=== PATIENT | female | born 1980 | race African-American/Black ===

== ENCOUNTER 2016-12-03 14:56 | Inpatient (IN) | payer OTHER ==
[~2016-12-03] VITALS: Ht 154.9 cm; Wt 86.2 kg
--- NOTE | ~2016-12-03 | EKG ---
PATIENT: EDDIE JOLLEY UNIT #: [id number] Ventricular Rate: 93 BPM Atrial Rate: 93 BPM P-R Interval: 146 ms QRS Duration: 82 ms Q-T Interval: 388 ms QTC Calculation(Bezet): 482 ms P [place]: 12 degrees Calculated R [place]: -3 degrees Calculated T [place]: 79 degrees Diagnosis Line: Normal sinus rhythm Diagnosis Line: Prolonged QT Diagnosis Line: Abnormal ECG Diagnosis Line: When compared with ECG of 03-DEC-2016 15:03, Diagnosis Line: No significant change was found Diagnosis Line: Confirmed by HALLIE FLORES MD ([id number]) on Diagnosis Line: 12/06/2016 8:53:30 AM INTERPRETING MD: LIDA
--- NOTE | ~2016-12-03 | EKG ---
PATIENT: EDDIE JOLLEY UNIT #: [id number] Ventricular Rate: 84 BPM Atrial Rate: 84 BPM P-R Interval: 146 ms QRS Duration: 86 ms Q-T Interval: 382 ms QTC Calculation(Bezet): 451 ms P [place]: 1 degrees Calculated R [place]: -15 degrees Calculated T [place]: 102 degrees Diagnosis Line: Normal sinus rhythm Diagnosis Line: Minimal voltage criteria for LVH, may be normal Diagnosis Line: variant Diagnosis Line: T wave abnormality, consider lateral ischemia Diagnosis Line: Abnormal ECG Diagnosis Line: No previous ECGs available Diagnosis Line: Confirmed by KHLOE STUBBS MD ([id number]) on Diagnosis Line: 12/04/2016 11:09:35 AM INTERPRETING MD: EVELYNE ARCHIBALD
--- NOTE | ~2016-12-03 | CO ---
Unit #: [id number] #: [id number] Patient: EDDIE JOLLEY [id number] [address] [address] [id number] I MR#: [id number] NAME: EDDIE JOLLEY ROOM: [facility] Age: 36 Sex: F Admission Date: 12/03/2016 : 1980 Attending Physician: Homa Schroeder M.D. Primary Care Physician: No Primary Care Physician Consultation Date: 12/04/2016 CONSULTATION REPORT REASON FOR CONSULTATION Chest pain, shortness of breath and palpitations. HISTORY OF PRESENT ILLNESS The patient is a 36-year-old female who does not have a information security manager. She denies ever having a cardiac history of myocardial infarction or cardiac catheterization. The patient does report that she does have a past medical history of hypertension, chronic kidney disease likely glomerulonephritis, that was diagnosed as a child. She has not had any followup as an adult for her chronic kidney disease. She reports that she did have a biopsy around the age of 6, when this was diagnosed. The patient does endorse that she does smoke half to one pack of cigarettes daily and does use marijuana. The patient presented to the emergency department with complaints of intermittent chest pain and discomfort as well as increased fatigue. She stated that the pain was dull and constant, in the middle of her chest, and would radiate to her left arm. She denied any fever, chills, night sweats, nausea or vomiting. In the emergency department the patient was found to be hypertensive with a blood pressure of 260/140 and a chest x-ray that was consistent with pulmonary edema. Cardiology has been consulted for chest pain, shortness of breath and hypertension. She was started on a Cardene drip. PAST MEDICAL HISTORY 1. Glomerulonephritis. 2. Hypertension. 3. Chronic kidney disease. 4. Likely obstructive sleep apnea. PAST SURGICAL HISTORY Right ankle surgery. SOCIAL HISTORY The patient has children. She smokes a half pack to one pack of cigarettes per day. She does endorse marijuana use. She denies a history of alcohol use. FAMILY HISTORY The patient endorses hypertension and coronary artery disease, but details are unknown. ALLERGIES No known drug allergies. Unit #: [id number] #: [id number] Patient: SHOLA,LACRETIA HOME MEDICATIONS None. REVIEW OF SYSTEMS A 10-point review of systems has been done and is otherwise negative except as per the history of present illness. PHYSICAL EXAMINATION GENERAL: The patient is awake and alert, in no acute distress. VITALS: Temperature 98.4, heart rate 99, respiratory rate 20, blood pressure 152/80 and she is oxygenating at 98%. HEENT: Head is atraumatic, normocephalic. Pupils equal, round and reactive. Extraocular movements are intact. No drainage from ears or nares. NECK: Supple. Trachea midline. No thyromegaly or lymphadenopathy is appreciated. Normal carotid upstrokes. CHEST: Lungs are clear to auscultation bilaterally. No wheezes, rales or rhonchi. HEART: S1 and S2. Regular rate and rhythm. No murmurs, rubs or gallops appreciated. ABDOMEN: Soft, nontender and nondistended. Bowel sounds are positive in all four quadrants. SKIN: Warm, dry and intact without any unusual rashes or lesions. EXTREMITIES: No clubbing, edema or cyanosis. NEUROLOGIC: The patient is alert and oriented times three. She is pleasant and conversant. No focal deficits. DIAGNOSTIC STUDIES IMAGING: Chest x-ray shows findings consistent with pulmonary edema. LABORATORY: Most recently, white blood cell count 10.2, hemoglobin 9.5, hematocrit 28.5, platelets 237, sodium 133, potassium 4.6, chloride 106, CO2 18, glucose 99, BUN 47, creatinine 7.9, iron 183, CK 163, magnesium 2.1, TIBC 400, transferrin 286, trans saturation 46. Urine culture is negative. ASSESSMENT 1. Hypertensive urgency. 2. [place]ai[place]-iw-mwhsjmo kidney disease. 3. Glomerulonephritis. 4. Acute on likely chronic anemia. 5. Hyponatremia. 6. Heavy menses. 7. Tobaccoism. 8. Noncompliant. 9. Marijuana use. PLAN At this time will attempt to wean the patient off the Cardene drip as tolerated. Will check a BMP, CBC, magnesium, troponin, EKG in the morning. Will obtain a two-dimensional echocardiogram. Will place the patient on hydralazine 25 mg p.o. q.6 h. and hold for systolic blood pressure less than 110. Lipid profile will be added to her labs as well as a urine tox screen. Unit #: [id number] #: [id number] Patient: MARIPOSA JOLLEYA Dictated by... Chelly Nieves A.P.R.N. for Alisa Dieter Parada AM/amos TD: 12/04/2016 12:20 JOB #: [id number] CONSULTATION REPORT Page 1 of 1 X Chelly Nieves APRN X CONSULTATION REPORT
--- NOTE | ~2016-12-03 | HP ---
Unit #: [id number] #: [id number] Patient: EDDIE JOLLEY [id number] [address] [place], [place] [address] [id number] I MR#: [id number] NAME: EDDIE JOLLEY ROOM: [address] Age: 36 Sex: F Admission Date: 12/03/2016 : 1980 Attending Physician: Homa Schroeder M.D. HISTORY AND PHYSICAL REASON FOR ADMISSION Hemoglobin 6.8, accelerated hypertension, creatinine 8.2. HISTORY OF PRESENT ILLNESS The patient is a 36-year-old female who states she has not taken any medications for the past several years, who really does not follow up with any primary care physicians, stated that off and on for the past several weeks she has had an increasing amount of chest pain and/or discomfort, as well as increased fatigue. She was subsequently evaluated in the emergency room and noted to have the above laboratory abnormalities and thus is being admitted for the same. 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 She off and on did not follow up through her younger childhood. In her late 20s, she was asked to go to [facility] who she never formally saw or followed up with. She has not really seen any primary care physicians for the past several years. Also noted was her BNP was 1019. Initial blood pressure in the emergency room is 260/140. PAST MEDICAL HISTORY Hypertension, currently on no medications. PAST SURGICAL HISTORY Right ankle surgery. HOME MEDICATIONS None. ALLERGIES No known drug allergies. FAMILY HISTORY Patient knows her mother had hypertension, as well as kidney-related and/or heart-related issues. She is not very clear on details. Siblings have no medical history and/or complications. She is not very well aware of her father's side of the family. SOCIAL HISTORY Positive tobacco use. Negative alcohol use. The patient denies illicit drug use. Unit #: [id number] #: [id number] Patient: EDDIE JOLLEY REVIEW OF SYSTEMS Please see History of Present Illness. Positive for chest pain, positive shortness of breath, positive fatigue, positive dyspnea on exertion. No fever or chills, no nausea or vomiting, no melena. Positive metromenorrhagia for the past several years. PHYSICAL EXAMINATION VITAL SIGNS: Temperature 98.3, pulse 92, respiratory rate 16, and blood pressure 260/140. GENERAL APPEARANCE: A 36-year-old female lying comfortably in no acute distress. HEAD: Atraumatic and normocephalic. EARS: Tympanic membranes do not reveal any erythema or injection. NECK: Supple. CARDIOVASCULAR: S1 and S2, tachycardic, with no murmur. RESPIRATORY: Clear. GASTROINTESTINAL/ABDOMEN: Nontender and nondistended. LOWER EXTREMITIES: No evidence of any lower extremity edema and no calf tenderness. NEUROLOGIC: Alert and oriented x3. No evidence of any focal nerve deficits. DIAGNOSTIC STUDIES LABORATORY ON ADMISSION: Hemoglobin of 6.8. GFR of 6.5, creatinine 8.2, and CO2 of 19. Initial cardiac enzyme set negative. BNP 1019. INR 0.9. INITIAL IMPRESSION 1. Acute kidney injury. 2. Anemia, questionable acute blood loss versus anemia of chronic disease secondary to renal failure. 3. Metromenorrhagia. 4. Chest pain. 5. Accelerated hypertension. 6. Noncompliance with medications. PLAN Admission. Nitroglycerin drip. ICU placement. Type and cross and transfuse two units. GI consultation. Protonix drip. Renal consultation. Start gentle IV fluids at 50 mL/hour. Cardiac consultation. A 2D echocardiogram secondary to elevated BNP. Routine laboratory studies in the a.m. Strict I/Os. The plans have been reviewed with the patient. She is Full Code. Prognosis is guarded at this point secondary to numerous coexisting medical conditions. Patient well aware of her prognosis, as well as current clinical situation. Dictated by Dieter Sparrow/chanda TD: 12/03/2016 20:12 JOB #: [id number] Unit #: [id number] #: [id number] Patient: EDDIE JOLLEY HISTORY AND PHYSICAL Page 1 of 1 X Homa Schroeder MD HISTORY AND PHYSICAL
--- NOTE | ~2016-12-03 | CT71 ---
[facility] A Service of [facility] RADIOLOGY TEXT RESULTS PATIENT: EDDIE JOLLEY [facility] [birth year] UNIT #: [id number] AGE: [address]: Homa Schroeder MD SEX: F ORDER DR: [id number] [facility] [address] [place], [place] [address] [id number] I MR#: [id number] Acc #: [id number] NAME: EDDIE JOLLEY : 1980 SEX: F STUDY DATE/TIME: 12/03/2016 16:07 UNIT: [facility]IC2 ROOM: [facility] STUDY DESCRIPTION: CT Head Wo Contrast Attending Physician: Homa Schroeder M.D. Ordering Physician: Ricco Noe M.D. Primary Care Physician: Primary Care Physician No MEDICAL IMAGING REPORT This report is preliminary unless electronic signature is present EXAM CT head without contrast INDICATION Left arm numbness, lightheadedness and headache for the past week. PROCEDURE Unenhanced CT of the head. This CT exam was performed with one or more of the following radiation dose reduction techniques: automatic exposure control, adjustment of mA and/or kV according to patient size, and iterative reconstruction. COMPARISON None FINDINGS No acute hemorrhage, abnormal mass effect, extraaxial collection or hydrocephalus. No definitive evidence for an acute or early subacute large territory infarct. No calvarial fracture. Paranasal sinuses and mastoid air cells are clear. IMPRESSION No acute intracranial findings. Dictated by... Eh Vargas M.D. THIS IS AN ELECTRONICALLY VERIFIED REPORT Eh Vargas M.D. at 12/05/2016 7:14 AM FUNMILAYO/berkley TD: 12/04/2016 07:58 [facility] A Service [facility] RADIOLOGY TEXT RESULTS PATIENT: EDDIE JOLLEY [facility] : [birth year] UNIT #: [id number] AGE: [address]: Homa Schroeder MD SEX: F ORDER DR: JOB #: [id number] MEDICAL IMAGING REPORT Page 1 of 1 COPY
--- NOTE | ~2016-12-03 | CR72 ---
[facility] A Service of [facility] RADIOLOGY TEXT RESULTS PATIENT: EDDIE JOLLEY LOCATION: [address] : [birth year] UNIT #: [id number] AGE: [address]: Homa Schroeder MD SEX: F ORDER DR: [id number] [facility] [address] [facility]. [place], [place] [address] [id number] I MR#: [id number] Acc #: [id number] NAME: EDDIE JOLLEY : 1980 SEX: F STUDY DATE/TIME: 12/04/2016 1:14 UNIT: [facility] ROOM: [facility] STUDY DESCRIPTION: CR Chest Single View Portable Attending Physician: Homa Schroeder M.D. Ordering Physician: Homa Schroeder M.D. Primary Care Physician: Primary Care Physician No MEDICAL IMAGING REPORT This report is preliminary unless electronic signature is present EXAM Portable chest HISTORY PIC catheter placement. FINDINGS This portable view of the chest compared with one from yesterday. The PIC catheter has been added on the right side. The tip is in the lower superior vena cava. The heart size is normal and the lungs are clear. Dictated by... Tal Alvarenga M.D. THIS IS AN ELECTRONICALLY VERIFIED REPORT Tal Alvarenga M.D. at 12/04/2016 1:42 PM ERIN/elbert TD: 12/04/2016 13:27 JOB #: [id number] MEDICAL IMAGING REPORT Page 1 of 1 COPY
--- NOTE | ~2016-12-03 | CR72 ---
[facility] A Service of [facility] RADIOLOGY TEXT RESULTS PATIENT: EDDIE JOLLEY LOCATION: [address] : [birth year] UNIT #: [id number] AGE: [address]: Homa Schroeder MD SEX: F ORDER DR: [id number] [facility] [address] [facility] [place], [place] [address] [id number] I MR#: [id number] Acc #: [id number] NAME: EDDIE JOLLEY : 1980 SEX: F STUDY DATE/TIME: 12/03/2016 15:35 UNIT: [facility] ROOM: [facility] STUDY DESCRIPTION: CR Chest Single View Portable Attending Physician: Homa Schroeder M.D. Ordering Physician: Ricco Noe M.D. Primary Care Physician: Primary Care Physician No MEDICAL IMAGING REPORT This report is preliminary unless electronic signature is present EXAM Portable chest, 12/03/2016 HISTORY Chest pain, shortness of breath on exertion, cough, chest congestion and headache for 1 week. Benign essential hypertension, bronchitis. Smoking history for 20 years. FINDINGS A single AP portable view of the chest shows both lungs to be clear. The heart is normal in size. The mediastinal contour is normal. No significant bone abnormalities are seen. IMPRESSION Normal portable chest. Dictated by... Alberto Greer M.D. THIS IS AN ELECTRONICALLY VERIFIED REPORT Alberto Greer M.D. at 12/04/2016 2:11 PM JEFFREY/berkley TD: 12/04/2016 09:04 JOB #: [id number] MEDICAL IMAGING REPORT Page 1 of 1 COPY
--- NOTE | ~2016-12-03 | CO ---
Unit #: [id number] #: [id number] Patient: EDDIE JOLLEY [id number] [address] [place], [place] [address] [id number] I MR#: [id number] NAME: EDDIE JOLLEY ROOM: [facility] Age: 36 Sex: F Admission Date: 12/03/2016 : 1980 Attending Physician: Homa Schroeder M.D. Primary Care Physician: No Primary Care Physician Consultation Date: 12/04/2016 CONSULTATION REPORT REASON FOR CONSULT ICU management. REASON FOR ADMISSION High blood pressure and low hemoglobin. HISTORY OF PRESENT ILLNESS This is a very pleasant 36-year-old female with past medical history significant for hypertension, chronic kidney disease and likely glomerulonephritis who presented to the emergency room with chest pain and profound fatigue. The patient stated that her chest pain was dull and constant in the middle of her chest but radiated to her left arm. She denied any fever, chills or night sweats. No nausea, vomiting or diagnosed. She had no fever or chills. No coughing. Unfortunately, the patient had a longstanding history of chronic kidney disease and glomerulonephritis. She had a kidney biopsy in the past, but that was more than 20 years ago. She lost followup, and she has not had any labs recently. In the ER the patient was found to be severely hypertensive with blood pressure of 260/140. Her chest x-ray was consistent with pulmonary edema. PAST MEDICAL HISTORY 1. Hypertension. 2. Glomerulonephritis. 3. Chronic kidney disease. 4. Possible obstructive sleep apnea. PAST SURGICAL HISTORY Right ankle surgery. HOME MEDICATIONS None. ALLERGIES No known drug allergies. FAMILY HISTORY Hypertension and heart problems. SOCIAL HISTORY Unit #: [id number] #: [id number] Patient: EDDIE JOLLEY The patient continues to smoke less than a pack per day. No history of alcohol or drug abuse. REVIEW OF SYSTEMS Twelve-point review of systems was obtained and was negative except for what was mentioned in the HPI. PHYSICAL EXAMINATION GENERAL: The patient, at this point, does not appear in acute distress. VITAL SIGNS: Blood pressure 155/79, respiratory rate 16, O2 saturation 96% on room air. HEENT: Atraumatic, normocephalic. PERRLA, EOMI. NECK: Supple. No JVD. No lymphadenopathy. CHEST: Clear to auscultation bilaterally. HEART: S1, S2. No murmur, gallops or rubs. ABDOMEN: Soft, nontender. Bowel sounds positive. No hepatosplenomegaly. EXTREMITIES: She has +1 edema, and there is some orbital edema, also. SKIN: No rashes. HEAD LIBRARIAN: Awake, alert, oriented x3. No focal motor/sensory deficits. LABS AND OTHER TESTS LABS: Creatinine is 8.2, sodium 134. White blood count 8.1, hemoglobin 6.8. IMAGING TESTS: Chest x-ray is consistent with pulmonary edema. ASSESSMENT 1. Hypertensive emergency. 2. Acute on chronic kidney disease versus endstage renal disease. 3. Acute on likely chronic anemia. 4. Hyponatremia. 5. Likely glomerulonephritis. 6. Heavy menstrual period. PLAN 1. Patient will be monitored in ICU closely. However, she can be transferred as soon as she is off Cardene drip. 2. Patient will be started on blood pressure p.o. medicines and adjusted over the next 2-3 days. 3. Her current hemoglobin level is likely related to heavy periods and chronic kidney disease. I doubt any GI etiology. It is okay from my standpoint to discontinue her Protonix drip. 4. Patient will likely need hemodialysis and tunnelled cath placement. Awaiting nephrology evaluation. 5. Patient was counselled extensively regarding compliance with medication and followup with doctors. 6. DVT prophylaxis. NOTE: I would like to thank Dr. Schroeder for allowing me to be part of this patient's care. Dictated by... Israel Willingham M.D. EA/mae Unit #: [id number] #: [id number] Patient: EDDIE JOLLEY TD: 12/04/2016 11:21 JOB #: [id number] CONSULTATION REPORT Page 1 of 1 X ISRAEL GALLEGO MD CONSULTATION REPORT
--- NOTE | ~2016-12-03 | CO ---
Unit #: [id number] #: [id number] Patient: EDDIE IBRAHIM [id number] [facility]. [place], [place] [address] [id number] I MR#: [id number] NAME: EDDIE IBRAHIM ROOM: 314 Age: 36 Sex: F Admission Date: 12/03/2016 : 1980 Attending Physician: Debra Holley M.D. Primary Care Physician: Primary Care Physician No Consultation Date: 12/04/2016 CONSULTATION REPORT REASON FOR CONSULTATION Hemodialysis access. HISTORY OF PRESENT ILLNESS This is a 36-year-old female admitted to [facility] with chest pain. On admission, she was having a hypertensive crisis with systolic blood pressure in the 260s. Reviewing her chart as well as medical history, she has had a little medical care for followup of her chronic kidney disease as well as uncontrolled hypertension. Her current lab values have a glomerular filtration rate measuring 6.8 and she is now in need of hemodialysis initiation. We have been asked to see her for line placement and AV fistula creation. Ms. Ibrahim is right handed. She has no implanted pacemaker or defibrillator. PAST SURGICAL HISTORY Significant for a surgery to her right ankle. PAST MEDICAL HISTORY 1. Chronic kidney disease. 2. Hypertension. 3. Sleep apnea. 4. Glomerulonephritis. HOME MEDICATIONS None. ALLERGIES No known drug allergies. SOCIAL HISTORY The patient smoked around one pack of cigarettes daily. No history of alcohol or drug use. FAMILY HISTORY Hypertension, but no mention of hemodialysis. REVIEW OF SYSTEMS Other than chest pain on admission, a 12-point review of systems was negative except mentioned in the HPI. PHYSICAL EXAMINATION VITAL SIGNS: Temperature 98.5, blood pressure 157/84, heart rate 94, and respirations 19. Unit #: [id number] #: [id number] Patient: EDDIE IBRAHIM GENERAL: Drowsy female. She answers questions appropriately; however, she otherwise has limited participation in the examination. NECK: No carotid bruits heard on auscultation. HEENT: Normocephalic. CARDIAC: Regular rate and rhythm. No murmurs noted. LUNGS: Clear to auscultation, but diminished at bilateral bases. Nonlabored. ABDOMEN: Positive bowel sounds. Abdomen is soft, nontender. No distention. MUSCULOSKELETAL: Moves all extremities with full range of motion. VASCULAR: Palpable radial pulses bilaterally. Palpable femoral pulses bilaterally. Palpable dorsalis pedis and posterior tibialis pulses bilaterally. INTEGUMENTARY: No obvious sores, lesions, or wounds to her skin. She has a PICC line in her right upper extremity. NEUROLOGIC: Cranial nerves II through XII grossly intact with normal strength and sensation bilaterally. PSYCHIATRIC: The patient is alert and oriented to person, place, and time. DIAGNOSTIC STUDIES IMAGING STUDIES: Upper extremity vein mapping pending. LABORATORY RESULTS: Sodium 133, potassium 4.6, chloride 106, CO2 of 18, BUN 47, creatinine 7.9, and EGFR 6.8. Hemoglobin 9.5, hematocrit 28.5, WBC 10.2, and platelets 237. Coagulation, INR 0.9. ASSESSMENT 1. Chronic kidney disease with need for hemodialysis access and initiation. 2. Hypertension. PLAN Vein mapping has been ordered and will be reviewed once obtained. The patient is right handed and has a right arm PICC line, so ideally the plan will be for a left arm arteriovenous fistula creation if vein mapping shows suitable vasculature. She is in need for initiation of hemodialysis, so a tunneled dialysis catheter will be placed tomorrow, which can be used thereafter for hemodialysis. With respect to her hypertension, she is currently in the ICU being managed on a Cardene drip. Thank you for allowing us to participate in the care of Ms. Ibrahim. Dictated by... Mani Stevens APRN for Dieter Jeffries/emilee TD: 12/05/2016 14:27 JOB #: [id number] Unit #: [id number] #: [id number] Patient: EDDIE IBRAHIM CONSULTATION REPORT Page 1 of 1 X X CONSULTATION REPORT
--- NOTE | ~2016-12-03 | OR ---
Unit #: [id number] #: [id number] Patient: EDDIE JOLLEY [id number] [facility]. [place], [place] [address] [id number] I MR#: [id number] NAME: EDDIE JOLLEY ROOM: [facility] Date of Procedure: 12/06/2016 Admission Date: 12/03/2016 Surgeon: Trey Hooker M.D. : 1980 Attending Physician: Delon Garcia M.D. Primary Care Physician: Primary Care Physician No OPERATIVE REPORT PREOPERATIVE DIAGNOSIS Chronic renal failure. POSTOPERATIVE DIAGNOSIS Chronic renal failure. PROCEDURE PERFORMED Insertion of right IJ tunneled catheter with ultrasound guidance and C-arm fluoroscopy. ANESTHESIA MAC with local. INDICATIONS FOR PROCEDURE This is a patient with requiring hemodialysis initiation, who was recommended a tunneled catheter now and AV fistula later. She was explained the risks and benefits and agrees to proceed. DESCRIPTION OF PROCEDURE The patient was brought to the operating room and IV sedation was administered and monitored by Anesthesia. The neck and the chest were cleaned, prepped, and draped in the usual sterile fashion with ChloraPrep. A 1% lidocaine was infiltrated and a small skin incision was made in the right side of the neck. Using ultrasound guidance, the right internal jugular vein was entered with a needle and a guidewire was passed. It was confirmed to be in the right side of the heart with C-arm fluoroscopy. After serial dilatation, a dilator and sheath were placed and a 23 cm NextStep catheter was passed through the sheath and the sheath was peeled away. A subcutaneous tunnel was made and the catheter was pulled through the tunnel leaving the cuff under the skin. The catheter was trimmed appropriately, attached to the Y connectors, aspirated revealing free flow of venous blood, and flushed. The tip of the catheter was confirmed with the right atrium with no kinks. The catheter was affixed to the skin with 3-0 nylon, and skin incision in the neck was closed with 4-0 Monocryl and Steri-Strips. Dressings were placed. The patient was transported to the recovery room in stable condition. Dictated by... Trey Hooker M.D. Unit #: [id number] #: [id number] Patient: EDDIE JOLLEY SA/modl TD: 12/11/2016 03:06 JOB #: [id number] OPERATIVE REPORT Page 1 of 1 X Trey Hooker MD PROCEDURE OPERATIVE NOTE
--- NOTE | ~2016-12-03 | US77 ---
[facility] A Service of [facility] & [facility] RADIOLOGY TEXT RESULTS PATIENT: EDDIE JOLLEY LOCATION: [address] : [birth year] UNIT #: [id number] AGE: [address]: Homa Schroeder MD SEX: F ORDER DR: [id number] [facility] [address] [facility] [place] [facility]. [place], [place] [address] [id number] I MR#: [id number] #: [id number] NAME: EDDIE JOLLEY : 1980 SEX: F STUDY DATE/TIME: 12/04/2016 19:15 UNIT: [id number] ROOM: [facility] STUDY DESCRIPTION: US Kidney Bilateral Complete Attending Physician: Homa Schroeder M.D. Referring Physician: Nikhil Brooke M.D. Ordering Physician: Ed Ramiro Duarte M.D. Primary Care Physician: No Primary Care Physician MEDICAL IMAGING REPORT This report is preliminary unless electronic signature is present EXAM Renal ultrasound, 12/04/2016. HISTORY Hypertension, acute renal insufficiency, abnormal renal function tests. Elevated BUN of 47, elevated creatinine of 7.9. Abnormally low GFR of 6.8 today. FINDINGS The right kidney measures 9.6 cm while the left kidney measures 10.1 cm in longitudinal dimensions. There is no evidence of hydronephrosis or nephrolithiasis. No cystic or solid mass lesions were seen on either kidney. There is increased renal cortical echogenicity characteristic of medical renal disease. The bladder was empty for the exam and therefore poorly visualized. Trace ascites is noted. IMPRESSION 1. Bilateral increase in renal cortical echogenicity characteristic of medical renal disease. No evidence of hydronephrosis. 2. The bladder was empty for the exam and therefore poorly visualized. 3. Trace ascites. Dictated by... Alberto Greer M.D. THIS IS AN ELECTRONICALLY VERIFIED REPORT Alberto Greer M.D. at 12/05/2016 2:20 PM JEFFREY/marcial TD: 12/05/2016 01:12 JOB #: [id number] [facility] A Service of [facility] & [facility] RADIOLOGY TEXT RESULTS PATIENT: EDDIE JOLLEY LOCATION: [facility] : [birth year] UNIT #: [id number] AGE: [address]: Homa Schroeder MD SEX: F ORDER DR: MEDICAL IMAGING REPORT Page 1 of 1 COPY
--- NOTE | ~2016-12-03 | DS ---
Unit #: [id number] #: [id number] Patient: EDDIE JOLLEY [id number] [facility] [address] [place], [place] [address] [id number] I MR#: [id number] NAME: EDDIE JOLELY ROOM: 314 Age: 36 Sex: F Admission Date: 12/03/2016 : 1980 Discharge Date: 12/10/2016 Attending Physician: Delon Garcia M.D. Primary Care Physician: No Primary Care Physician DISCHARGE SUMMARY DIAGNOSIS ON ADMISSION Acute renal failure. DIAGNOSES ON DISCHARGE 1. Endstage renal disease, newly diagnosed. 2. Malignant hypertension, resolved. 3. Severe left ventricular hypertrophy. 4. Ejection fraction of 60%. 5. Tobacco abuse. 6. Marijuana abuse. 7. Chronic anemia. 8. Probable obstructive sleep apnea syndrome. 9. Severe iron deficiency anemia. CONSULTATIONS 1. Dr. Rousseau in intensive care consultation. 2. Dr. Acuna in renal consultation. 3. Dr. Avilez in pulmonary" consultation. 4. Dr. Parada in cardiology consultation. 5. Vascular surgery for hemodialysis access. HOSPITAL COURSE This 36-year-old female was admitted to [facility] with creatinine of 8.2. The patient was seen by renal in consultation and underwent hemodialysis. The patient apparently had a renal biopsy as a child and glomerulonephritis. She underwent hemodialysis. Nephrology has labeled her as newly diagnosed endstage renal disease, and she will need hemodialysis on an outpatient basis, which is being arranged. Anemia. The patient's hemoglobin was 6.8 on admission. She received 2 units of blood transfusion. Hemoglobin is 9.5. She was seen by Dr. Abbasi in consultation. Malignant hypertension. The patient was seen by cardiology in consultation. She had a two-D echocardiogram done, which revealed ejection fraction of 60%, and she had severe concentric left ventricular hypertrophy present. PHYSICAL EXAMINATION GENERAL: Today, the patient is comfortable, is not in any acute distress. VITAL SIGNS: Vital signs reveal temperature of 98.1, pulse 72 per minute, respiratory rate 18 per minute and blood pressure (1) . Patient is currently having hemodialysis. HEENT: Examination revealed no conjunctival congestion. Sclera is Unit #: [id number] #: [id number] Patient: SHOLALACRETIA nonicteric. NECK: Neck is supple. Trachea is central. RESPIRATORY: Examination revealed breath sounds equal bilaterally. There are no wheezes or crackles. HEART: Regular rate and rhythm. S1, S2. ABDOMEN: Abdomen is soft, nontender. Bowel sounds are present in all 4 quadrants. NEUROLOGIC: The patient is alert to person, place and time. Power is 5/5 bilaterally. Sensations are grossly intact. SKIN: Skin is warm and dry. RECOMMENDATIONS ON DISCHARGE 1. Condition is stable. 2. Activity is as tolerated. DISCHARGE MEDICATIONS 1. Tylenol 650 mg p.o. q.4 hours p.r.n. 2. Norvasc 10 mg p.o. daily. 3. Lopressor 50 mg p.o. daily. 4. Senokot S 2 tablets p.o. b.i.d. 5. MiraLAX 17 grams p.o. daily. 6. Hydralazine 100 mg p.o. daily. 7. Lisinopril 20 mg p.o. daily. FOLLOWUP 1. The patient is advised to follow up with primary care physician in 1 week and have a CBC and BMP done. 2. The patient is advised to follow up with Dr. Echeverria, Dr. Parada and Dr. Abbasi as recommended. 3. The patient is also advised to follow up with Dr. Rousseau as recommended for sleep apnea evaluation. NOTE: The plan was discussed in detail with the patient, who showed complete understanding to the fact that noncompliance can lead to worsening of her condition. Dictated by... Dieter Pennington/mae TD: 12/10/2016 16:18 JOB #: [id number] CC: Dieter Rocha M.D. DISCHARGE SUMMARY Page 1 of 1 X Delon Garcia MD DISCHARGE SUMMARY
--- NOTE | ~2016-12-03 | EKG ---
PATIENT: EDDIE JOLLEY UNIT #: [id number] Ventricular Rate: 76 BPM Atrial Rate: 76 BPM P-R Interval: 166 ms QRS Duration: 78 ms Q-T Interval: 390 ms QTC Calculation(Bezet): 438 ms P Ransom: 25 degrees Calculated R Ransom: -9 degrees Calculated T Ransom: 95 degrees Diagnosis Line: Normal sinus rhythm Diagnosis Line: Septal infarct , age undetermined Diagnosis Line: T wave abnormality, consider lateral ischemia Diagnosis Line: Left ventricular hypertrophy Diagnosis Line: Abnormal ECG Diagnosis Line: When compared with ECG of 06-DEC-2016 08:17, Diagnosis Line: (unconfirmed) Diagnosis Line: Septal infarct is now Present Diagnosis Line: Confirmed by SHEELA GARCIA MD ([id number]) on 12/07/2016 Diagnosis Line: 10:55:21 AM INTERPRETING MD: JOSE ARCHIBALD
--- NOTE | ~2016-12-03 | EKG ---
PATIENT: EDDIE JOLLEY UNIT #: [id number] Ventricular Rate: 73 BPM Atrial Rate: 73 BPM P-R Interval: 164 ms QRS Duration: 78 ms Q-T Interval: 416 ms QTC Calculation(Bezet): 458 ms P Richmond: 29 degrees Calculated R Richmond: 17 degrees Calculated T Richmond: 63 degrees Diagnosis Line: Normal sinus rhythm Diagnosis Line: Nonspecific T wave abnormality Diagnosis Line: Abnormal ECG Diagnosis Line: When compared with ECG of 05-DEC-2016 06:20, Diagnosis Line: Nonspecific T wave abnormality, worse in Lateral Diagnosis Line: leads Diagnosis Line: Confirmed by SHEELA GARCIA MD ([id number]) on 12/07/2016 Diagnosis Line: 10:52:45 AM INTERPRETING MD: JOSE ARCHIBALD
--- NOTE | ~2016-12-03 | CR72 ---
[facility] A Service of [facility] & [facility] RADIOLOGY TEXT RESULTS PATIENT: EDDIE JOLLEY LOCATION: [facility] 314-01 : [birth year] UNIT #: [id number] AGE: [address]: Debra Holley MD SEX: F ORDER DR: [id number] [facility] [address] [facility]. [place], [place] [address] [id number] I MR#: [id number] Acc #: [id number] NAME: EDDIE JOLLEY : 1980 SEX: F STUDY DATE/TIME: 12/06/2016 15:24 UNIT: [address] ROOM: [facility] STUDY DESCRIPTION: CR Chest Single View Portable Attending Physician: Debra Holley M.D. Ordering Physician: Trey Hooker M.D. Primary Care Physician: No Primary Care Physician MEDICAL IMAGING REPORT This report is preliminary unless electronic signature is present EXAM Portable chest INDICATIONS Tunneled catheter placement. COMPARISON 12/04/2016 FINDINGS New right IJ tunneled dialysis catheter with tip in the region of the upper right atrium. Stable right-sided PICC line. No pneumothorax. Improved inspiratory volume. Heart size stable. IMPRESSION Tunneled right IJ central venous catheter tip projects in the region of the upper right atrium. No evidence for pneumothorax. Dictated by... Rohith Sepulveda M.D. THIS IS AN ELECTRONICALLY VERIFIED REPORT Rohith Sepulveda M.D. at 12/07/2016 7:12 AM RAINE/yeison TD: 12/06/2016 17:22 JOB #: [id number] MEDICAL IMAGING REPORT Page 1 of 1 COPY
--- NOTE | ~2016-12-03 | CO ---
Unit #: [id number] #: [id number] Patient: EDDIE JOLLEY [id number] [facility]. [place], [place] [address] [id number] I MR#: [id number] NAME: EDDIE JOLLEY ROOM: 314 Age: 36 Sex: F Admission Date: 12/03/2016 : 1980 Attending Physician: Debra Holley M.D. Primary Care Physician: Primary Care Physician No Consultation Date: 12/04/2016 CONSULTATION REPORT CONSULTING SERVICE [facility] REASON FOR CONSULTATION Acute versus chronic kidney disease. HISTORY OF PRESENT ILLNESS The patient is a 36-year-old female with history of childhood glomerulonephritis, who presented to the emergency room with chest pain off and on for 1 to 2 weeks. She was found to have marked renal failure, with creatinine of 8.2 and BUN 49. She underwent a kidney biopsy at age 5 or 6 for proteinuria. She cannot recall any specifics of this, any particular glomerulonephritis diagnosis. She saw a interlacer for sometime, was never treated with any form of immunosuppression. She never transitioned to adult nephrology, though was recommended to see [facility] at some point. She actually reports concern about her children accidentally drinking urine collections that she previously would store in her refrigerator. She denies any nausea or vomiting. She has taken some antiinflammatories off and on. Denies any lower extremities swelling, but does note some dyspnea. She stated urine output has been fairly normal. The patient was markedly hypertensive in the ER, with blood pressure of 260/140. She is aware of being hypertensive, most recently it is 4 or 5 years ago when she had some type of ankle injury, though she was not treated then or since. Currently, she is on a Cardene drip and systolic blood pressure is down to the 140s. Hathaway catheter was placed in the ER. Urine output has been 3.2 L thus far. We will avoid IV fluid, creatinine is essentially the same today at 7.9. Potassium is normal, and she does have some moderate metabolic acidosis with bicarbonate of 18. She is also severely anemic, with hemoglobin of 6.8. She was transfused 2 units of packed red cells and is up to 9.5 today. She denies any melena or hematochezia. She has had menorrhagia, passing clots during recent menses. She has not been on any antibiotics recently. She does not take any ivwr-ytw-[id number] herbal supplements. PAST MEDICAL HISTORY 1. Glomerulonephritis of some form, status post renal biopsy at age 5 or 6 for proteinuria. 2. Hypertension, untreated. FAMILY HISTORY Denies any chronic kidney disease. Mother had hypertension. Unit #: [id number] #: [id number] Patient: EDDIE JOLLEY PAST SURGICAL HISTORY Right ankle surgery. MEDICATIONS Home medications, none. ALLERGIES No known drug allergies. SOCIAL HISTORY Active smoker. No alcohol or illicit substances. REVIEW OF SYSTEMS GENERAL: No fevers, chills, or night sweats. HEENT: No vision changes, congestion, or dysphagia. CARDIOVASCULAR: Chest pain present off and on over the last 1 to 2 weeks. Denies lower extremity swelling. RESPIRATORY: Some intermittent dyspnea present. No cough. GI: No nausea, vomiting, or diarrhea. Denies melena. GENITOURINARY: No dysuria, hematuria, or hesitancy. MUSCULOSKELETAL: No joint pain, redness, or swelling. HEMATOLOGIC: Menorrhagia present. DERMATOLOGIC: No rash. PSYCHIATRIC: No anxiety or depression. ENDOCRINE: No history of diabetes or thyroid disease. NEUROLOGIC: No headaches, seizures, dizziness, or syncope. PHYSICAL EXAMINATION VITAL SIGNS: Blood pressure is down to 146/76 this morning, heart rate 90, respirations 15, and temperature 98.9. GENERAL: The patient is a pleasant, overweight, female, in no acute distress. She is comfortable and alert. HEENT: Oropharynx is clear. Moist mucous membranes. NECK: Supple. No JVD. LUNGS: Clear to auscultation bilaterally. No rales or rhonchi. CARDIAC: Regular rate and rhythm. No murmurs. ABDOMEN: Soft, nontender, and nondistended. Bowel sounds are present. VASCULAR: No hip or pedal edema. 2+ radial pulses. DERMATOLOGIC: Normal skin turgor. No rash. MUSCULOSKELETAL: No joint warmth or erythema. NEUROLOGIC: Oriented to person, place, and time. Speech is normal. LABORATORY DATA Sodium 134, potassium 4.1, chloride 107, bicarb 19, BUN 49, creatinine 8.2 (7.9 today), glucose 99, and calcium 8.5. Liver function test, normal. Albumin is 3.7. Urinalysis; 3+ protein, specific gravity 1.012, 1+ blood, 10 to 25 white cells, 2 to 5 red cells. Troponin is negative. BNP is 1019. IMAGING STUDIES CT head without contrast shows no acute abnormality. ASSESSMENT 1. Elevated creatinine. I suspect this represents end-stage renal disease rather than acute kidney injury. The patient had some form of childhood glomerulonephritis, undergoing renal biopsy at age 5 or age 6. She did not follow up with nephrology subsequently, and in the setting of untreated malignant hypertension over at least several years, her creatinine is 8.2 upon presentation. She does not have any overt signs or symptoms of volume depletion nor is there any significant improvement with IV fluid. Obstruction is unlikely, as azotemia is no better with Hathaway catheter placement. Urinalysis does show 3+ protein and 1+ blood. It is unlikely that we will be able to obtain her renal biopsy reports from 30+ Unit #: [id number] #: [id number] Patient: EDDIE JOLLEY years ago. We will obtain renal ultrasound to assess kidney size and echogenicity. There is no immediate indication for hemodialysis, as potassium is stable. She does have some moderate metabolic acidosis. We will tentatively plan on dialysis initiation tomorrow, ask vascular surgery to arrange tunnel catheter placement. We will also request vein mapping for arteriovenous fistula evaluation. We will check basic glomerulonephritis serologies, including ASIF, hepatitis B, hepatitis C, and complement levels. 2. Malignant hypertension. Blood pressure was greater than 200/100 initially in the ER. It is down to the 140 systolic range, on Cardene drip. We will try not to over correct this, wean Cardene as able. Norvasc and hydralazine have been added. We will avoid KATHY inhibitor for the time being as we determine chronicity of her kidney disease. 3. Metabolic acidosis related to advanced CKD in all likelihood. 4. Anemia. Hemoglobin is severely low at 6.6. This may be related to her advanced chronic kidney disease and adequate (EPO) erythropoietin production. There is no reported melena, though she has had menorrhagia. Gastroenterology has been consulted. She is severely iron deficient with ferritin of only 7. PLAN 1. Discontinue IV fluid. 2. Obtain renal ultrasound. 3. Quantify proteinuria with spot ratio. 4. Check GN serologies as above. 5. If no hydronephrosis on ultrasound, we will remove Hathaway catheter. 6. Wean Cardene drip. 7. Vascular surgery consultation for tunnel catheter placement and vein mapping. 8. We will start oral sodium bicarbonate. 9. Give IV iron series. Thank you, Dr. Schroeder for involving me in the patient's care; we will follow her closely. Dictated by... Petros Acuna M.D. CARLY/emilee TD: 12/05/2016 05:21 JOB #: [id number] CONSULTATION REPORT Page 1 of 1 X X CONSULTATION REPORT
--- NOTE | ~2016-12-03 | US146 ---
[facility] A Service of [facility] RADIOLOGY TEXT RESULTS PATIENT: EDDIE JOLLEY LOCATION: [facility] 314-01 : [birth year] UNIT #: [id number] AGE: [address]: Debra Holley MD SEX: F ORDER DR: [id number] [facility] [address] [facility]. [place], [place] [address] [id number] I MR#: [id number] Acc #: [id number] NAME: EDDIE JOLLEY : 1980 SEX: F STUDY DATE/TIME: 12/05/2016 12:48 UNIT: [facility] ROOM: [facility] STUDY DESCRIPTION: Vein Map Hemodial Access Attending Physician: Homa Schroeder M.D. Ordering Physician: Homa Schroeder M.D. Primary Care Physician: No Primary Care Physician MEDICAL IMAGING REPORT This report is preliminary unless electronic signature is present EXAM Bilateral upper extremity vein map, 12/05/2016. HISTORY Chronic kidney disease. Dialysis access evaluation. FINDINGS High-resolution B-mode imaging and color flow Doppler analysis was performed of the brachial arteries bilaterally. The brachial arteries have a normal triphasic wave form bilaterally. High-resolution B-mode imaging was performed of the cephalic and basilic veins bilaterally. Thrombus is noted in the right cephalic vein in the antecubital region that is incompressible. All other veins are fully compressible with no thrombus. The right cephalic vein measures 3 mm in the proximal upper arm, 4 mm in the mid upper arm, 3 mm in the distal upper arm, 3 mm in the proximal forearm, 3 mm in the mid forearm, and 3 mm in the distal forearm. The right basilic vein measures 5 mm in the proximal upper arm, 4 mm in the mid upper arm, 3 mm in the distal upper arm, 3 mm at the elevate bow, 2 mm in the proximal forearm, 2 mm in the mid forearm, and 2 mm in the distal forearm. The left cephalic vein measures 3 mm in the proximal upper arm, 3 mm in the mid upper arm, 3 mm in the distal upper arm, 2 mm at the elbow, 5 mm in the proximal forearm, 3 mm in the mid forearm, and 3 mm in the distal forearm. The left basilic vein measures 5 mm in the proximal upper arm, 4 mm in the mid upper arm, 3 mm in the distal upper arm, 4 mm at the elbow, [address] [facility] A Service of [facility] RADIOLOGY TEXT RESULTS PATIENT: EDDIE JOLLEY LOCATION: [facility] 314-01 : [birth year] UNIT #: [id number] AGE: [address]: Debra Holley MD SEX: F ORDER DR: the proximal forearm, 2 mm in the mid forearm, and 3 mm in the distal forearm. IMPRESSION Superficial vein thrombosis of the right cephalic vein in the antecubital region. The left cephalic vein is patent and adequate for use as a fistula throughout the arm. Both basic veins are adequate for use as a fistula above the elbow. Dictated by... Alfredo Florian M.D. THIS IS AN ELECTRONICALLY VERIFIED REPORT Alfredo Florian M.D. at 12/06/2016 10:37 AM BOLIVAR/yeison TD: 12/05/2016 15:53 JOB #: [id number] MEDICAL IMAGING REPORT Page 1 of 1 COPY
[2016-12-03 15:56] LABS: BASOPHIL# 0.1 X10e3 (0-0.3); BASOPHIL% 0.9 % (0-2.5); EOSINOPHIL# 0.3 X10e3 (0-0.7); EOSINOPHIL% 4.3 % (0.0-7.0); HEMATOCRIT 21.1 % (35.0-45.0); LYMPHOCYTE# 1.9 X10e3 (1.0-3.5); LYMPHOCYTE% 23.5 % (17.0-45.0); MEAN CELL VOLUME 83.4 FL (83-96); MEAN CORPUSCULAR HGB CONC 32.3 g/dL (30-36); MEAN PLATELET VOLUME 7.8 FL (6.5-11.5); MONOCYTE# 0.8 X10e3 (0-1.0); MONOCYTE% 9.4 % (3.0-12.0); NEUTROPHIL% 61.9 % (40-75); PLATELET COUNT 230 X10e3 (140-420); RED BLOOD COUNT 2.53 X10e (3.90-5.30); RED CELL DISTRIBUTION WIDTH 15.5 % (11.0-15.5); WHITE BLOOD COUNT 8.1 X10e3 (4.0-10.5)
[2016-12-03 15:57] LABS: POC - CKMB <1.0 ng/mL (0.0-7.9); POC - TROPONIN <0.05 ng/mL (<=0.05)
[2016-12-03 15:58] LABS: DIFF IND YES; HEMOGLOBIN 6.8 gm/dL (12.0-16.0)
[2016-12-03 16:02] LABS: INR 0.9; PARTIAL THROMBOPLASTIN TIME 27.6 SECONDS (23.5-31.3); PROTHROMBIN TIME (PATIENT) 10.1 SECONDS (10.0-11.7)
[2016-12-03] MEDS ORDERED: NO MEDICATIONS (16:02)
[2016-12-03 16:23] LABS: ALBUMIN SERUM 3.7 g/dL (3.5-5.0); BILIRUBIN, DIRECT 0.1 mg/dL (0.0-0.2); BILIRUBIN,INDIRECT 1.1 mg/dL (0.0-0.9); BILIRUBIN,TOTAL 1.2 mg/dL (0.2-2.0); BUN/CREATININE RATIO 5.97; CALCIUM SERUM 8.5 mg/dL (8.4-10.2); CREATININE SERUM 8.2 mg/dL (0.6-1.4); GLOM FILT RATE Estimated 6.5 mL/min (>60); POTASSIUM 4.1 mmol/L (3.5-5.1); PROTEIN TOTAL SERUM 6.6 g/dL (6.0-8.3)
[2016-12-03 16:32] LABS: PLATELET ESTIMATE NORMAL (NORMAL)
[2016-12-03 17:15] LABS: POC - CKMB <1.0 ng/mL (0.0-7.9); POC - TROPONIN <0.05 ng/mL (<=0.05)
[2016-12-03 18:51] LABS: URINE SOURCE CATH
[2016-12-03 18:58] LABS: URINE APPEARANCE CLOUDY; URINE BILIRUBIN NEG (NEG); URINE BLOOD 1+ (NEG); URINE COLOR YELLOW; URINE GLUCOSE NEG (NEG); URINE KETONE NEG (NEG); URINE LEUKOCYTE ESTERASE 1+ (NEG); URINE NITRATE NEG (NEG); URINE PH 5.5 (5-8); URINE PROTEIN 3+ (NEG); URINE SPECIFIC GRAVITY 1.012 (1.003-1.035); URINE UROBILINOGEN 0.2 MG/DL (NEG)
[2016-12-03 19:00] LABS: URINE BACTERIA AUWI NEG (NEGATIVE); URINE SQUAMOUS EPITHELIAL CELL MOD /[HPF]
[2016-12-03 19:18] LABS: URINE AMORPHOUS SEDIMENT AMORP URATES
[2016-12-04 00:20] LABS: MB 1.2 ng/ml
[2016-12-04 04:34] LABS: BASOPHIL# 0.1 X10e3 (0-0.3); BASOPHIL% 0.7 % (0-2.5); EOSINOPHIL# 0.3 X10e3 (0-0.7); EOSINOPHIL% 3.3 % (0.0-7.0); HEMATOCRIT 28.5 % (35.0-45.0); LYMPHOCYTE# 1.7 X10e3 (1.0-3.5); LYMPHOCYTE% 16.8 % (17.0-45.0); MEAN CELL VOLUME 83.6 FL (83-96); MEAN CORPUSCULAR HEMOGLOBIN 27.9 PG (28-34); MEAN CORPUSCULAR HGB CONC 33.4 g/dL (30-36); MEAN PLATELET VOLUME 8.2 FL (6.5-11.5); MONOCYTE# 0.8 X10e3 (0-1.0); MONOCYTE% 7.7 % (3.0-12.0); NEUTROPHIL# 7.3 X10e3 (1.5-7.1); NEUTROPHIL% 71.5 % (40-75); PLATELET COUNT 237 X10e3 (140-420); RED CELL DISTRIBUTION WIDTH 14.8 % (11.0-15.5); WHITE BLOOD COUNT 10.2 X10e3 (4.0-10.5)
[2016-12-04 04:40] LABS: DIFF IND NO; HEMOGLOBIN 9.5 gm/dL (12.0-16.0)
[2016-12-04 04:42] LABS: INR 0.9; PROTHROMBIN TIME (PATIENT) 10.2 SECONDS (10.0-11.7)
[2016-12-04 04:53] LABS: BUN/CREATININE RATIO 5.94; CALCIUM SERUM 8.3 mg/dL (8.4-10.2); CREATININE SERUM 7.9 mg/dL (0.6-1.4); GLOM FILT RATE Estimated 6.8 mL/min (>60); MAGNESIUM 2.1 mg/dL (1.6-3.0); PHOSPHOROUS 5.3 mg/dL (2.5-4.6); POTASSIUM 4.6 mmol/L (3.5-5.1)
[2016-12-04 05:11] LABS: %MB 0.9 % (0.0-4.0); MB 1.5 ng/ml
[2016-12-04 10:43] LABS: CHOLESTEROL 157 mg/dL (0-200); HDL CHOLESTEROL 59 mg/dL (35-95); LDL CHOLESTEROL 89 mg/dL ([, -130]); LDL/HDL RATIO 2 RATIO (0-4); TRIGLYCERIDES 47 mg/dL (10-160)
[2016-12-04 11:37] LABS: AMPHETAMINE NEG (NEG); BARBITURATES NEG (NEG); BENZODIAZEPINES NEG (NEG); COCAINE NEG (NEG); CREATININE,RANDOM URINE 53 mg/dL; MARIJUANA NEG (NEG); OPIATES NEG (NEG); TOTAL PROTEIN,RANDOM URINE 162 mg/dl (<10); TRICYCLIC ANTIDEPRESSANTS NEG (NEG); U METHADONE NEG (NEG)
[2016-12-05 04:04] LABS: BASOPHIL% 0.4 % (0-2.5); EOSINOPHIL# 0.4 X10e3 (0-0.7); EOSINOPHIL% 3.3 % (0.0-7.0); HEMATOCRIT 28.3 % (35.0-45.0); HEMOGLOBIN 9.3 gm/dL (12.0-16.0); LYMPHOCYTE# 1.5 X10e3 (1.0-3.5); LYMPHOCYTE% 14.3 % (17.0-45.0); MEAN CORPUSCULAR HEMOGLOBIN 27.5 PG (28-34); MEAN CORPUSCULAR HGB CONC 32.7 g/dL (30-36); MEAN PLATELET VOLUME 8.5 FL (6.5-11.5); MONOCYTE# 0.9 X10e3 (0-1.0); MONOCYTE% 8.7 % (3.0-12.0); NEUTROPHIL# 7.9 X10e3 (1.5-7.1); NEUTROPHIL% 73.3 % (40-75); PLATELET COUNT 254 X10e3 (140-420); RED BLOOD COUNT 3.36 X10e (3.90-5.30); RED CELL DISTRIBUTION WIDTH 14.9 % (11.0-15.5); WHITE BLOOD COUNT 10.7 X10e3 (4.0-10.5)
[2016-12-05 04:05] LABS: DIFF IND NO
[2016-12-05 04:22] LABS: INR 0.9
[2016-12-05 04:30] LABS: BUN/CREATININE RATIO 5.81; CALCIUM SERUM 8.2 mg/dL (8.4-10.2); CREATININE SERUM 7.4 mg/dL (0.6-1.4); GLOM FILT RATE Estimated 7.4 mL/min (>60); PHOSPHOROUS 5.3 mg/dL (2.5-4.6); POTASSIUM 4.2 mmol/L (3.5-5.1)
[2016-12-06 05:25] LABS: BASOPHIL# 0.1 X10e3 (0-0.3); BASOPHIL% 0.7 % (0-2.5); EOSINOPHIL# 0.5 X10e3 (0-0.7); EOSINOPHIL% 3.9 % (0.0-7.0); HEMATOCRIT 27.8 % (35.0-45.0); HEMOGLOBIN 8.8 gm/dL (12.0-16.0); LYMPHOCYTE# 1.9 X10e3 (1.0-3.5); LYMPHOCYTE% 16.3 % (17.0-45.0); MEAN CELL VOLUME 85.8 FL (83-96); MEAN CORPUSCULAR HEMOGLOBIN 27.2 PG (28-34); MEAN CORPUSCULAR HGB CONC 31.7 g/dL (30-36); MEAN PLATELET VOLUME 8.9 FL (6.5-11.5); MONOCYTE# 1.1 X10e3 (0-1.0); MONOCYTE% 9.5 % (3.0-12.0); NEUTROPHIL# 8.2 X10e3 (1.5-7.1); NEUTROPHIL% 69.6 % (40-75); PLATELET COUNT 254 X10e3 (140-420); RED BLOOD COUNT 3.24 X10e (3.90-5.30); RED CELL DISTRIBUTION WIDTH 15.2 % (11.0-15.5); WHITE BLOOD COUNT 11.7 X10e3 (4.0-10.5)
[2016-12-06 05:35] LABS: DIFF IND NO
[2016-12-06 06:03] LABS: BUN/CREATININE RATIO 5.31; CALCIUM SERUM 8.6 mg/dL (8.4-10.2); CREATININE SERUM 7.9 mg/dL (0.6-1.4); GLOM FILT RATE Estimated 6.8 mL/min (>60); PHOSPHOROUS 5.6 mg/dL (2.5-4.6); POTASSIUM 5.2 mmol/L (3.5-5.1)
[2016-12-07 05:17] LABS: BASOPHIL% 0.3 % (0-2.5); EOSINOPHIL# 0.3 X10e3 (0-0.7); EOSINOPHIL% 3.3 % (0.0-7.0); HEMATOCRIT 26.5 % (35.0-45.0); HEMOGLOBIN 8.7 gm/dL (12.0-16.0); LYMPHOCYTE# 1.5 X10e3 (1.0-3.5); LYMPHOCYTE% 17.4 % (17.0-45.0); MEAN CELL VOLUME 85.1 FL (83-96); MEAN CORPUSCULAR HEMOGLOBIN 27.9 PG (28-34); MEAN CORPUSCULAR HGB CONC 32.8 g/dL (30-36); MEAN PLATELET VOLUME 8.7 FL (6.5-11.5); MONOCYTE# 1.1 X10e3 (0-1.0); MONOCYTE% 12.4 % (3.0-12.0); NEUTROPHIL# 5.8 X10e3 (1.5-7.1); NEUTROPHIL% 66.6 % (40-75); PLATELET COUNT 239 X10e3 (140-420); RED BLOOD COUNT 3.12 X10e (3.90-5.30); RED CELL DISTRIBUTION WIDTH 15.4 % (11.0-15.5); WHITE BLOOD COUNT 8.7 X10e3 (4.0-10.5)
[2016-12-07 05:27] LABS: DIFF IND NO
[2016-12-07 06:56] LABS: ALBUMIN SERUM 2.9 g/dL (3.5-5.0); BUN/CREATININE RATIO 4.38; CALCIUM SERUM 8.1 mg/dL (8.4-10.2); CREATININE SERUM 5.7 mg/dL (0.6-1.4); GLOM FILT RATE Estimated 10.1 mL/min (>60); PHOSPHOROUS 4.2 mg/dL (2.5-4.6); POTASSIUM 4.3 mmol/L (3.5-5.1)
[2016-12-07 14:58] LABS: COMPLEMENT C3 99 mg/dL (90-180); COMPLEMENT C4 36 mg/dL (16-47)
[2016-12-08 05:42] LABS: HEMOGLOBIN 9.7 gm/dL (12.0-16.0); MEAN CELL VOLUME 86.6 FL (83-96); MEAN CORPUSCULAR HEMOGLOBIN 27.9 PG (28-34); MEAN CORPUSCULAR HGB CONC 32.3 g/dL (30-36); MEAN PLATELET VOLUME 8.5 FL (6.5-11.5); RED BLOOD COUNT 3.46 X10e (3.90-5.30); WHITE BLOOD COUNT 8.1 X10e3 (4.0-10.5)
[2016-12-08 06:10] LABS: BUN/CREATININE RATIO 3.09; CALCIUM SERUM 8.9 mg/dL (8.4-10.2); CREATININE SERUM 4.2 mg/dL (0.6-1.4); GLOM FILT RATE Estimated 14.6 mL/min (>60); POTASSIUM 4.3 mmol/L (3.5-5.1)
[2016-12-10] MEDS ORDERED: ACETAMINOPHEN650 M4 PO (14:46)
[2016-12-10] MEDS ORDERED: AMLODIPINE BESY10 MG PO (14:46)
[2016-12-10] MEDS ORDERED: LOPRESSOR PO (14:47)
[2016-12-10] MEDS ORDERED: MIRALAX17 G2 PO (14:48)
[2016-12-10] MEDS ORDERED: SENNA PO (14:48)
[2016-12-10] MEDS ORDERED: HYDRALAZINE HC100 MG PO (14:49)
[2016-12-10] MEDS ORDERED: LISINOPRIL20 MG PO (14:50)
[2016-12-10] MEDS ORDERED: FERROUS SUL PO (14:53)
[2016-12-11 21:06] LABS: ANA SCREEN Negative (Negative); CALCIUM (PTHINTACT) 8.3 mg/dL (8.6-10.2); HEP B SURFACE AG Nonreactive (Nonreactive); HEP C AB (HEPPAN) Nonreactive (Nonreactive); HEP C AB SIGNAL TO CUTOFF 0.07 ratio (<1.00); MYELOPEROXIDASE AB (PNL) <1.0 AI (<1.0); PROTEINASE-3 AB (PNL) <1.0 AI (<1.0)
== END 2016-12-10 18:41 | disposition home or self-care (01) | DRG 682 ==
LOC: CED 14:56 → CEDOF 17:20 → CICCU2 17:20 → CEDOF 17:37 → CED 17:37 → CICCU2 17:37 → CEDOF 22:08 → CICCU2 12-06 06:47 → C3A PCU 12-06 09:39
PROVIDERS: Emergency Medicine; Family Medicine; Internal Medicine; Internal Medicine Cardiovascular Disease; Internal Medicine Nephrology
PROC: 30233N1 Transfusion of Nonautologous Red Blood Cells into Peripheral Vein, Percutaneous Approach (ICD-10-PCS; 2016-12-03)
PROC: B24BZZZ Ultrasonography of Heart with Aorta (ICD-10-PCS; 2016-12-04)
PROC: 5A1D60Z (ICD-10-PCS; 2016-12-06)
PROC: 05HM33Z Insertion of Infusion Device into Right Internal Jugular Vein, Percutaneous Approach (ICD-10-PCS; principal; 2016-12-10)
PROC: B543ZZA Ultrasonography of Right Jugular Veins, Guidance (ICD-10-PCS; 2016-12-10)
DX: I12.0 Hypertensive chronic kidney disease with stage 5 chronic kidney disease or end stage renal disease (principal); N18.6 End stage renal disease; E87.2 Acidosis; E87.1 Hypo-osmolality and hyponatremia; F17.210 Nicotine dependence, cigarettes, uncomplicated; D50.9 Iron deficiency anemia, unspecified; F12.10 Cannabis abuse, uncomplicated; G47.33 Obstructive sleep apnea (adult) (pediatric); N92.1 Excessive and frequent menstruation with irregular cycle; R07.9 Chest pain, unspecified; I16.0 Hypertensive urgency; E87.5 Hyperkalemia; Z91.14 Patient's other noncompliance with medication regimen; Z82.49 Family history of ischemic heart disease and other diseases of the circulatory system; Z84.1 Family history of disorders of kidney and ureter
CPT/HCPCS: 70450; 71010; 76001; 76770; 77001; 80048; 80061; 80069; 80076; 80307; 81003; 82306; 82310; 82550; 82553; 82570; 82607; 82728; 83036; 83540; 83550; 83735; 83880; 83970; 84100; 84156; 84443; 84484; 84703; 85025; 85027; 85610; 85730; 86021; 86038; 86039; 86160; 86803; 86850; 86900; 86901; 86923; 87086; 87340; 93005; 93306; 94760; 94761; 96374; 99291; C1752; C9113; G0365; J0690; J1642; J1644; J1650; J1940; J2250; J2405; J2916; J3010; P9016; Q4081